=== PATIENT | female | born 1990 | race Caucasian/White ===

== ENCOUNTER 2018-08-19 17:54 | Inpatient (IN) | payer MEDICAID ==
[~2018-08-19 17:54] MED LIST: OXYTOCIN 30 UNITS/LR 500 ML BAG IV ONE
--- NOTE | 2018-08-19 19:46 | TRIAGE ---
OB Triage Datetime Report Generated by CPN: 08/19/2018 19:46 Datetime: 08/19/2018 19:40 Stage of : OB Triage Maternal Assessment Level of Consciousness: Fully Conscious DTR's/Clonus: DTRs 1+ Headache: Denies Blurred Vision: No Respiratory Effort: Unlabored Breath Sounds, Left: Clear and Equal Breath Sounds, Right: Clear and Equal Nausea/Vomiting: Denies RUQ Epigastric Pain: Denies Facial Edema: None Labor Evaluation Frequency: X4 Monitor Mode: External Duration (sec)2399: 40-90 Quality: Mild Pattern: Normal: <= 5 Contractions in 10 Minutes Resting Tone [place]: Relaxed Heart Rate FHR Baseline Rate: 150 Monitor Mode: External US Variability: Moderate 6-25 bpm Accelerations: 15X15 Decelerations: None Category: Category I Pain Assessment Pain Scale: 5 Pain Presence: Intermittent Pain Type: Cramping Pain Location: Back Pain Goal: 3 Membrane Status: Intact Datetime: 08/19/2018 18:52 Stage of : OB Triage Labor Evaluation Frequency: X3 Monitor Mode: External Quality: Mild Pattern: Normal: <= 5 Contractions in 10 Minutes Resting Tone [place]: Relaxed Heart Rate FHR Baseline Rate: 145 Monitor Mode: External US Variability: Moderate 6-25 bpm Accelerations: 15X15 Decelerations: None Category: Category I Pain Assessment Pain Scale: 3 Pain Presence: Intermittent Pain Type: Cramping Pain Location: Abdomen Pain Goal: 4 Datetime: 08/19/2018 18:09 Vaginal Exam Dilatation (cms): 0.0 Effacement (%): 0 Station: -2 Exam By: RODRI RAMIREZ Vaginal Bleeding: None Cervix, Consistency: Soft Cervix, Position: Midposition Datetime: 08/19/2018 18:01 EGA: 38.5 Datetime: 08/19/2018 17:45 Time of Arrival: 08/19/2018 17:45 EGA: 38.5 Arrived By: Ambulatory Arrived From: Home Chief Complaint: PT CAME IN C/O UC'S SINCE THIS MORNING Movement: Present Contractions: Irregular Time Contractions Began: 08/19/2018 08:00 Rupture of Membranes: Denies Vaginal Discharge: Denies Recent Sexual Intercouse: Denies Abdominal Trauma: Not Applicable Additional Patient Complaints: NONE Time Provider Notified: 08/19/2018 18:30 Provider Notified: XU Initial Plan: NST, BPP Datetime: 08/19/2018 17:35 Time of Arrival: 08/19/2018 17:35 EGA: 38.5 Arrived By: Ambulatory Arrived From: Home Chief Complaint: PT CAME IN FROM HOME FOR NST AND BPP FOR GDM AND HIGH BLOO PRESSURES Movement: Present Contractions: Denies/Absent Rupture of Membranes: Denies Vaginal Discharge: Denies Recent Sexual Intercouse: Denies Abdominal Trauma: Not Applicable Additional Patient Complaints: NONE Time Provider Notified: 08/19/2018 18:10 Provider Notified: [place] Initial Plan: NST AND BPPF, LR AND PIH PANEL
[2018-08-19] MEDS: LACTATED RINGER'S 1,000 ML IV SCH ×2 (20:11→21:57)
[2018-08-19] MEDS ORDERED: MISOPROSTOL 200 MCG TAB PR PRN (21:30)
[2018-08-19] MEDS ORDERED: CEFAZOLIN 2 GM/50 ML (PMX) 50 ML IVPB SCH (21:30)
[2018-08-19] MEDS ORDERED: CARBOPROST 250 MCG INJ IM PRN (21:30)
[2018-08-19] MEDS ORDERED: OXYTOCIN 30 UNITS/LR 500 ML IV PRN (21:30)
[2018-08-19] MEDS ORDERED: OXYTOCIN 30 UNITS/LR 500 ML IV SCH (21:30)
[2018-08-19] MEDS ORDERED: METHYLERGONOVINE 0.2 MG INJ IM PRN (21:30)
[2018-08-19] MEDS ORDERED: CEFAZOLIN 2 GM/50 ML (PMX) 50 ML IVPB ONE (21:51)
--- NOTE | 2018-08-19 22:14 | PREAC ---
Date/Time of Note Date/Time of Note DATE: 08/19/18 TIME: 22:13 Anesthesia Eval and Record Evaluation Time Pre-Procedure Interview DATE: 08/19/18 TIME: 22:13 Age 27 Sex female NPO: 8 hrs Preoperative diagnosis Repeat in labor Planned procedure Past Medical History Past Medical History: Includes : : (4), Para: (3), Gestational age: (38) Surgery & Anesthesia Issues No known issue Meds Anticoagulation: No Beta Gurinder within 24 hr: No Reason Beta Gurinder not given: Pt. not on B-Gurinder Current Medications Lactated Ringer's 1,000 ml @ 250 mls/hr Q4H IV Last administered on 08/19/18at 21:57; Admin Dose 250 MLS/HR; Start 08/19/18 at 19:30 Cefazolin Sodium/ Dextrose 50 ml @ 100 mls/hr ONCE IVPB ; Start 08/19/18 at 21:30 Oxytocin/Lactated Ringer's 500 ml @ 125 mls/hr POST IV ; Start 08/19/18 at 21:30 Oxytocin/Lactated Ringer's 500 ml @ 0 mls/hr ONCE PRN IV .VAGINAL BLEEDING; Start 08/19/18 at 21:30 Methylergonovine Maleate (Methergine) 0.2 mg ONCE PRN IM .VAGINAL BLEEDING; Start 08/19/18 at 21:30 Carboprost Tromethamine (Hemabate) 250 mcg ONCE PRN IM .VAGINAL BLEEDING; Start 08/19/18 at 21:30 Misoprostol (Cytotec) 1,000 mcg ONCE PRN [place] .VAGINAL BLEEDING; Start 08/19/18 at 21:30 Meds reviewed: Yes Allergies Coded Allergies: latex (Verified Allergy, Intermediate, 08/19/18) Allergies Reviewed: Yes Labs/Studies Labs Reviewed: Reviewed by anesthesiologist Result Diagram: 08/19/18191608/19/181917 Laboratory Tests 08/19/18 19:17 08/19/18 19:18 test: Positive Studies: ECG (n/a), CXR (n/a) Pre-procedure Exam Airway: Adequate mouth opening, Adequate thyromental dist Mallampati: Mallampati II Teeth: Normal Lung: Normal Heart: Normal ASA Physical Status ASA physical status: 2 Emergency: None Planned Anesthetic Neuraxial: Spinal Planned Pain Management Sub-arachniod narcotics, Parenteral pain med Pre-operative Attestations Prior to commencing anesthesia and surgery, the patient was re-evaluated, there was verification of: *The patient's identity *The results of appropriate recent lab work and preoperative vital signs *The above evaluation not changing prior to induction *Anesthetic plan, risk benefits, alternative and complications discussed with patient/family; questions answered; patient/family understands, accepts and wishes to proceed. CLAUDIA CASTRO MD August 19, 2018 22:14
[2018-08-19] MEDS ORDERED: ONDANSETRON 4 MG INJ IV ONE (22:30)
[2018-08-19] MEDS ORDERED: CITRIC ACID/NA CITRATE 30 ML CUP PO ONE (22:30)
[2018-08-19] MEDS ORDERED: OXYTOCIN 10 UNIT INJ ONE (22:45)
[2018-08-19] MEDS ORDERED: morphine SULFATE/PF (10 MG/10 ML) INJ ONE (22:45)
[2018-08-19] MEDS ORDERED: PHENYLephrine (100 MCG/ML) 10ML SYG ONE ×2 (22:45→23:24)
[2018-08-19] MEDS ORDERED: DEXAMETHASONE 4 MG/ML 1 ML INJ ONE (23:15)
[2018-08-19] MEDS ORDERED: METOCLOPRAMIDE 10 MG INJ ONE (23:15)
[2018-08-19] MEDS ORDERED: KETOROLAC 30 MG INJ ONE (23:16)
[2018-08-19] MEDS ORDERED: HYDROmorphONE 0.5 MG/0.5 ML SYG IV PRN ×2 (23:30)
[2018-08-19] MEDS ORDERED: NALBUPHINE HCL (10 MG/1 ML) INJ IV PRN (23:30)
[2018-08-19] MEDS ORDERED: morphine 2 MG INJ IV PRN ×2 (23:30)
[2018-08-19] MEDS ORDERED: NALOXONE (0.4 MG/ML) INJ IV PRN (23:30)
[2018-08-19] MEDS ORDERED: DIPHENHYDRAMINE 50 MG INJ IV PRN (23:30)
[2018-08-19] MEDS ORDERED: ACETAMINOPHEN 500 MG TAB PO PRN (23:30)
[2018-08-19] MEDS ORDERED: ONDANSETRON 4 MG INJ IV PRN (23:30)
[2018-08-19] MEDS ORDERED: KETOROLAC 30 MG INJ IV PRN (23:30)
[2018-08-19] MEDS ORDERED: HYDROCODONE/APAP (5/325) TAB PO PRN (23:30)
[2018-08-20] VITALS (7 sets, daily range): BP systolic 108–136; BP diastolic 56–81; PULSE 82–106; RESP 17–20
--- NOTE | 2018-08-20 00:25 | PAC ---
Date/Time of Note Date/Time of Note DATE: 08/20/18 TIME: 00:25 Post-Anesthesia Notes Post-Anesthesia Note Last documented vital signs T: 98.0 Activity: WNL Respiratory function: WNL Cardiovascular function: WNL Mental status: Baseline Pain reasonably controlled: Yes Hydration appropriate: Yes Nausea/Vomiting absent: Yes CLAUDIA CASTRO MD August 20, 2018 00:25
--- NOTE | 2018-08-20 00:52 | OPR ---
Operative Report Planned Procedure Procedure date August 20, 2018 Procedure(s) Repeat . Performed by see signature line Care Mgr: WALLY ABBASI MD Anesthesiologist: CLAUDIA CASTRO MD Pre-procedure diagnosis IUP at 38w 5d. Previous , in labor. [id number] Anesthesia Type: Ovhgw2e spinal Post-Procedure Post-procedure diagnosis Same Findings Viable baby girl weighing 4120 grams or 9# 1 oz, 19" long, and with Apgars of 7/8/9. Estimated Blood Loss: 400 - 500 mls Specimen(s) none Grafts/Implant(s) none Complication(s) none Pt Condition post procedure: stable Disposition: PACU Procedure Description Under satisfactory spinal anesthesia, the patient was prepped and draped and placed in a supine position, tilted to the left. Pfannenstiel incision was made, carried through the subcutaneous tissue. Bleeders brought under control with electrocautery. Fascia incised to the length of the incision. Rectus muscles from the fascia, divided midline. Peritoneum exposed, entered through a transverse incision. Transverse incision was made in the lower segment of the uterus. Amniotic sac ruptured. Clear amniotic fluid noted. Used a vacuum application to deliver the head with gentle fundal pressure. Then delivered the anterior arm and then the rest of the baby. The mouth and nares were bulb suctioned. The cord was doubly clamped and cut. The baby was brought to the warmer and the team for immediate attention. The placenta was delivered manually intact. Uterine cavity was cleaned with wet sponge and drainage established. Uterus closed in 2 layers using #1 chromic in continuous fashion. Peritoneal cavity irrigated with warm saline. Sponge, needle and instrument count reported to be correct. Abdominal peritoneum closed with 2-0 Chromic continuously. Rectus muscle approximated with the same suture. Fascia closed with 0-Vicryl. The subcutaneous tissue was irrigated and closed with 2-0 Chromic and skin was closed with 3-0 Monocryl in a subcuticular stitch. Steristrips with Mastosol were placed. Estimated blood loss 500 mL. Urine was clear. ZAK CASTILLO MD August 20, 2018 00:52
--- NOTE | 2018-08-20 00:57 | HP ---
Date/Time of Note Date/Time of Note DATE: 08/20/18 TIME: 00:52 OB - History Hx of Present Free Text/Dictation 27 y.o. with an IUP at 38w 5d came in [place] and with IV hydration they did not segundo. Then decided to proceed with her as she was scheduled for it on 08/21. Pt had on vaginal delivery before and 2 c-sections. Estimated Due Date: August 28, 2018 : 4 Para: 3 Care: Good Care Ultrasounds: Normal mid trimester US Obstetrical Complications: None Medical Complications: None Past Family/Social History * Past Medical, Surgical, Family and Obstetric Histories reviewed from chart. Blood Type: A+ Rubella: immune RPR/VDRL: Negative GBS Status: Positive HBsAG: Negative OB Admission Exam Vital Signs Vital Signs BP 158/84 T=99.5 Physical Exam HEENT: WNL Heart: Rhythm Normal Lungs: Rhonchi Abdomen: WNL Extremities: Normal Reflexes: Normal Cervical Dilatation: None Effacement: 50% Station: -2 Membranes: Intact Amniotic Fluid: Clear Heart Rate: 140's Accelerations: Accelerations Present Decelerations: No Decelerations Varibility: Moderate Contractions on Admission: 6-10 Minutes Apart Intensity: Mild Last 72 hours Lab Results CBC & BMP 08/19/18 19:17 08/19/18 19:18 Liver Function Test 08/19/18 19:18 Alanine Aminotransferase (ALT/SGPT) 32 Albumin 3.8 Alkaline Phosphatase 154 H Aspartate Amino Transf (AST/SGOT) 40 Direct Bilirubin 0.00 Total Protein 7.8 OB Assessment/Plan Reason for admission: section Other Assessment: In labor. Previous x 2. Plan: Section ZAK CASTILLO MD August 20, 2018 00:57
[2018-08-20] MEDS ORDERED: METHYLERGONOVINE 0.2 MG INJ IM PRN (01:00)
[2018-08-20] MEDS ORDERED: LANOLIN HPA 1 PKT TOP PRN (01:00)
[2018-08-20] MEDS ORDERED: NACL 0.9% 3 ML SYG IV SCH (01:00)
[2018-08-20] MEDS ORDERED: CARBOPROST 250 MCG INJ IM PRN (01:00)
[2018-08-20] MEDS ORDERED: OXYTOCIN 30 UNITS/LR 500 ML IV PRN (01:00)
[2018-08-20] MEDS ORDERED: MISOPROSTOL 200 MCG TAB PR PRN (01:00)
[2018-08-20] MEDS ORDERED: OXYCODONE/ACETAMINOPHEN (5/325) TAB PO PRN (01:00)
[2018-08-20] MEDS: OXYTOCIN 30 UNITS/LR 500 ML IV SCH ×2 (01:24→10:59)
[2018-08-20] MEDS: IBUPROFEN 800 MG TAB PO SCH ×3 (06:00→22:00)
--- NOTE | 2018-08-20 10:38 | QN ---
Documentation Comment Patient is seen as per Nurses's request.O2 sat drops to 91% Obese VS STABLE Gen NAD Abd soft Obese.Dressing to be removed --->As is covering her own patients,A CT angiogram is recommended fo r R/o PE --->A Hospitalist consult is recommended ---<Nurse will contact and she will follow up on them and gives the orders, SALEEM PLAZA M.D. August 20, 2018 10:38
[2018-08-20] MEDS ORDERED: OXYTOCIN 30 UNITS/LR 500 ML IV SCH (15:00)
[2018-08-20] MEDS ORDERED: LACTATED RINGER'S 500 ML IV ONE (17:30)
[2018-08-21 00:06] VITALS: BP 141/75; PULSE 94; RESP 18
--- NOTE | 2018-08-21 01:17 | PN ---
Date/Time of Note Date/Time of Note DATE: 08/21/18 TIME: 01:12 OB Subjective Subjective Subjective Late entry note. Patient seen at 1300 on 08/20/2018 POD#1 Patient is doing well. She denies nausea, vomiting, shortness of breath, chest pain, headache. She has been ambulating without difficulty, tolerating regular diet. Pain is well controlled on current medications. She had low O2 saturation of 9394 early this morning which is resolved after receiving O2 and changing position. OB Objective Objective Objective General: AAO X 3, comfortable, NAD, appropriate mood and affect. Heart: RRR +S1, +S2, no murmurs. Lungs: Clear to auscultation (B/L), no rales, rhonchi or wheezing. ABD: +BS. Soft, non-tender. Uterus 2 cm below umbilicus Incision: Clear, dry, intact. No erythema, drainage or induration. Flank: No CVA tenderness (B/L) LE: Mild edema. No clubbing, cyanosis, thigh or calf tenderness (B/L). Homans 'sign is negative OB Assessment/Plan Other plan: 27 y.o. s/p repeat delivery at 38w 5d. POD#1 - AF, VSS - Baby is doing well, at bed side. She is bonding well - Contraception methods with R/B/A/FR discussed - Continue care TAD IBRAHIM August 21, 2018 01:16
[2018-08-21 04:13] VITALS: BP 125/74; PULSE 94; RESP 18
[2018-08-21] MEDS: IBUPROFEN 800 MG TAB PO SCH ×3 (05:51→22:36)
[2018-08-21 08:30] VITALS: BP 117/66; PULSE 88; RESP 20
[2018-08-21 12:19] VITALS: BP 118/69; PULSE 80; RESP 19
[2018-08-21 15:55] VITALS: BP 132/81; PULSE 84; RESP 18
[2018-08-21] MEDS: OXYCODONE/ACETAMINOPHEN (5/325) TAB PO PRN (16:05)
[2018-08-21 20:25] VITALS: BP 131/88; PULSE 82; RESP 18
[2018-08-21] MEDS ORDERED: SENNA TAB PO SCH (23:00)
[2018-08-22] MEDS ORDERED: SENNA TAB PO SCH
[2018-08-22] MEDS: MAGNESIUM HYDROXIDE 30ML CUP PO SCH ×2 (00:16→09:00)
[2018-08-22] MEDS: SENNA/DOCUSATE NA (8.6MG/50MG) TAB PO SCH ×2 (00:16→09:34)
[2018-08-22] MEDS: GUAIFENESIN 20 MG/ML 5ML CUP PO SCH ×3 (00:28→14:03)
[2018-08-22] MEDS: OXYCODONE/ACETAMINOPHEN (5/325) TAB PO PRN (00:41)
--- NOTE | 2018-08-22 02:50 | PN ---
Date/Time of Note Date/Time of Note DATE: 08/22/18 TIME: 02:49 OB Subjective Subjective Subjective Late Entry note. Patient seen at 20:30 on 08/21/2018 POD#2 Patient is doing well. She denies nausea, vomiting, shortness of breath, chest pain, headache. She has been ambulating without difficulty, tolerating regular diet. Pain is well controlled on current medications OB Objective Objective Objective Vital Signs Date Temp Pulse Resp B/P (MAP) Pulse Ox O2 O2 Flow FiO2 Time Delivery Rate 08/21/18 98.6 82 18 131/88 Room Air 20:25 (102) 08/21/18 94 04:13 08/20/18 2.0 11:26 General: AAO X 3, comfortable, NAD, appropriate mood and affect. ABD: +BS. Soft, non-tender. Uterus 2 cm below umbilicus Incision: Clear, dry, intact. No erythema, drainage or induration. Flank: No CVA tenderness (B/L) LE: Mild edema. No clubbing, cyanosis, thigh or calf tenderness (B/L). Homans 'sign is negative OB Assessment/Plan Other plan: 27 y.o. s/p repeat delivery at 38w 5d. POD#2 - AF, VSS - Baby is doing well, at bed side. She is bonding well - Contraception methods with R/B/A/FR discussed - Continue care She received Tdap vaccine - Discharge home tomorrow - Rx and instruction given - Follow up in one and 6 weeks TAD IBRAHIM August 22, 2018 02:49
[2018-08-22 03:48] VITALS: BP 123/61; PULSE 77; RESP 17
[2018-08-22] MEDS: IBUPROFEN 800 MG TAB PO SCH ×2 (05:43→14:03)
[2018-08-22 09:23] VITALS: BP 131/78; PULSE 73; RESP 20
[2018-08-22 16:05] VITALS: BP 139/86; PULSE 87; RESP 19
[2018-08-22] MEDS ORDERED: DIPHTH/TET/ACEL PERTUSS (ADULT) 0.5 ML VIAL IM* ONE (17:30)
--- NOTE | 2018-08-22 19:50 | PN ---
Date/Time of Note Date/Time of Note DATE: 08/22/18 TIME: 19:47 OB Subjective Subjective Subjective Denies any nausea vomiting. Reports decreased vaginal bleeding. Had one episode of diarrhea that resolved. Patient had been on stool softener and bowel regimen. Reports after stopped stool softener diarrhea resolved. Denies any fever or chills. Vaginal bleeding in the amount of menses. Breast-feeding. Ambulating. Urinated. OB Objective Objective Objective General appearance: Alert and oriented x4 does not appear to be in any acute distress Abdomen: Soft, fundus firm at the level of umbilicus Appropriate tenderness in the incision as well lower abdomen noted Incision: Clean dry and intact Extremities: 1+ bilateral symmetric edema no cord palpable negative Homans sign no calf tenderness Breast: No evidence of mastitis or fissure CBC & BMP 08/20/18 00:47 08/21/18 07:14 VS - Last 72 Hours, by Label Date Temp Pulse Resp B/P (MAP) Pulse Ox O2 O2 Flow FiO2 Time Delivery Rate 08/22/18 98.0 87 19 139/86 Room Air 16:05 (103) 08/22/18 98.2 73 20 131/78 Room Air 09:23 (95) 08/22/18 98.0 77 17 123/61 Room Air 03:48 (81) 08/21/18 98.6 82 18 131/88 Room Air 20:25 (102) 08/21/18 98.6 84 18 132/81 15:55 (98) 08/21/18 98.3 80 19 118/69 Room Air 12:19 (85) 08/21/18 98.2 88 20 117/66 Room Air 08:30 (83) 08/21/18 98.7 94 18 125/74 94 Room Air 04:13 (91) 08/21/18 98.0 94 18 141/75 94 Room Air 00:06 (97) 08/20/18 99.3 91 18 136/81 94 Room Air 20:00 (99) 08/20/18 98.6 93 18 126/74 96 Room Air 15:38 (91) 08/20/18 98.7 82 17 108/65 96 2.0 11:26 (79) 08/20/18 98.4 106 20 126/64 91 Room Air 10:00 (84) 08/20/18 98.7 98 20 121/56 96 Room Air 08:10 (77) 08/20/18 98.8 100 18 112/60 93 Room Air 03:35 (77) 08/20/18 98.5 98 18 113/63 90 Room Air 02:35 (80) OB Assessment/Plan Other Assessment: Status post section postop day #3 Doing well Stable for discharge Follow-up with OB office in 2 weeks and 6 weeks postop or sooner as needed Diarrhea, likely related to large amount of stool softener. Resolved. No other symptoms.\ DC home NOE ESPINOSA MD August 22, 2018 19:50
--- NOTE | 2018-08-22 19:53 | PD.PPDC ---
[employer] Discharge Instruction Provider Information Physician Information 08/22/2018 Condition [id number] Patient Condition: [id number] Good Diet [id number] Diet: [id number] Resume Regular Diet Activity/Restrictions [id number] Activity: Uzhox9f Normal Activity [id number] Restrictions: Zyxni1e No Exercising No Lifting No Driving No Sexual Activity Nothing in the Vagina No Linganore No Tampons, douche Follow-up Follow-up with Physician: 2, 6, Week/Weeks Return to clinic for [id number] [facility] Instructions: Ayyjk1x Fever greater than 101 Chills Worsening abdominal pain Excessive Vaginal Bleeding More than 2 pads per hour Unable to tolerate diet Itgzt1Qu OB Instructions: Ranjx6r Breast Tenderness Depression Blurried Vision Headache [id number] Surgical Instructions: Nmuft7a Incisional Drainage Incisional Redness NOE ESPINOSA MD August 22, 2018 19:53
--- NOTE | 2018-08-22 19:54 | DS ---
Date/Time of Note Date/Time of Note DATE: 08/22/18 TIME: 19:54 Obstetrical Discharge Record Final Diagnosis Final Diagnosis: Term delivered Other Final Diagnosis 27 y.o. with an IUP at 38w 5d History of Prior section, Contractions, Symptomatic Section Section: Repeat Complications Augmentation: No Induction: No Rupture of Membranes: No Condition on Discharge Physical Assessment Patient Condition: Stable NOE ESPINOSA MD August 22, 2018 19:54
--- NOTE | 2018-08-23 20:37 | DELSUM ---
Delivery Summary A-C Datetime Report Generated by CPN: 08/23/2018 20:37 DELIVERY PERSONNEL Staple Shear Operator: Ariadne Feldman MATERNAL INFORMATION Delivery Anesthesia: Spinal Medications in Delivery: See anesthesia notes Placenta Cultured: No Maternal Complications: None LABOR SUMMARY EDC: 08/28/2018 00:00 No. Babies in Womb: 1 Attempted: No Labor Anesthesia: None LABOR INFORMATION Reason for Induction: Not Applicable Oxytocin: N/A Group B Beta Strep: Positive Antibiotics # of Doses: 1 (Ancef 2g IVPB) Antibiotics Time of Last Dose: 08/19/2018 22:38 Steroids Given: None Reason Steroids Not Administered: Not Applicable MEMBRANES Membranes Rupture Method: Artificial Rupture of Membranes: 08/19/2018 23:20 Length of Rupture (hr): 0.03 Amniotic Fluid Color: Clear Amniotic Fluid Amount: Moderate Amniotic Fluid Odor: Normal STAGES OF LABOR Stage 3 hr: 0 Stage 3 min: 1 CSECTION DELIVERY Primary Indication: Repeat Elective Secondary Indication: N/A CSection Urgency: Elective CSection Incidence: Repeat Labor: Labor Elective: Elective CSection Incision: Lower Uterine Transverse BABY A INFORMATION Delivery Date/Time: 08/19/2018 23:22 Method of Delivery: Born in Route : No : N/A Forceps: N/A Vacuum Extraction: Successful Shoulder Dystocia : No ASSISTED DELIVERY BABY A Catheter Prior to Procedure: Yes Vacuum Number of Pulls: 1 Vacuum Power Barker Operator: Intersect ENT Total Time Vacuum Applied: 20seconds SHOULDER DYSTOCIA BABY A Delivery Date/Time: 08/19/2018 23:22 PRESENTATION/POSITION BABY A Presentation: Cephalic Cephalic Presentation: Vertex Breech Presentation: N/A PLACENTA INFORMATION BABY A Placenta Delivery Time : 08/19/2018 23:23 Placenta Method of Delivery: Manual Removal Placenta Status: Delivered SCORES BABY A Heart Rate 1 min: >100 bpm Resp Effort 1 min: Good Cry Reflex Irritability 1 min: Cough/Sneeze/Pulls Away Muscle Tone 1 min: Some Flexion of Extrem Color 1 min: Blue/Pale Resuscitation Effort 1 min: Tactile Stimulation; PPV/NCPAP SCORE 1 MIN: 7 Heart Rate 5 min: >100 bpm Resp Effort 5 min: Good Cry Reflex Irritability 5 min: Cough/Sneeze/Pulls Away Muscle Tone 5 min: Active Motion Color 5 min: Blue/Pale Resuscitation Effort 5 min: Tactile Stimulation; PPV/NCPAP SCORE 5 MIN: 8 Heart Rate 10 min: >100 bpm Resp Effort 10 min: Good Cry Reflex Irritability 10 min: Cough/Sneeze/Pulls Away Muscle Tone 10 min: Active Motion Color 10 min: Body Hana, Extremit Blue Resuscitation Effort 10 min: N/A SCORE 10 MIN: 9 INFORMATION BABY A Gestational Age at Delivery: 38.5 Gestational Status: Early Term- 37- 38.6 Weeks Infant Outcome : Liveborn Infant Condition : Stable Infant Sex: Female IDENTIFICATION/MEDS BABY A ID Band Number: [id number] ID Band Location: Right Leg; Left Arm Sensor Applied: Yes Sensor Number: [id number] Sensor Location : Cord Clamp Vitamin K Given : Not Given Erythromycin Given: Not Given WEIGHT/LENGTH BABY A Birthweight (gm): 4120 Infant Weight (lb): 9 Infant Weight (oz): 1 Infant Length (in): 19.00 Length (cm): 48.26 CORD INFORMATION BABY A No. Cord Vessels: 3 Nuchal Cord : N/A Cord Blood Taken: Yes Suction: Mouth; Nose ASSESSMENT BABY A Complications: None Physical Findings at Delivery: Within Normal Limits Respirations: Appears Normal [facility] Called : No Care By: Roscoe BLOCK and Bisi Robles RN Transferred To: Remains with Mother
== END 2018-08-22 20:15 | disposition home or self-care (01) | DRG 788 ==
LOC: OBT 17:54 → L-D 17:55 → OBT 19:40 → L-D 19:40 → PP1 08-20 02:35
PROVIDERS: ADMIT Obstetrics & Gynecology; ATTEND Obstetrics & Gynecology
PROC: 10D00Z1 Extraction of Products of Conception, Low, Open Approach (ICD-10-PCS; principal; 2018-08-20)
PROC: 3E033VJ Introduction of Other Hormone into Peripheral Vein, Percutaneous Approach (ICD-10-PCS; 2018-08-20)
DX: O65.5 Obstructed labor due to abnormality of maternal pelvic organs (principal); O34.211 Maternal care for low transverse scar from previous cesarean delivery; Z3A.38 38 weeks gestation of pregnancy; Z37.0 Single live birth
CPT/HCPCS: 76818; 80053; 84560; 85025; 85610; 85730; 86592; 86850; 86900; 86901; 90715; 99464; G0463; J0690; J1100; J1885; J2274; J2370; J2405; J2590; J2765; J7120